=== PATIENT | female | born 1985 ===

== ENCOUNTER → 2020-08-18 | Outpatient (CLI) | payer SELFPAY ==
[~2020-08-18] MED LIST: COVID-19 VACCINE (PFIZER)/PF 30 MCG/0.3 ML VIAL IM ONE; EPINEPHRINE INJ/PF 1 MG/1 ML AMPULE IM PRN
== END ==
LOC: EMPHEALTH 08:20
PROVIDERS: ATTEND Internal Medicine
DX: Z23 Encounter for immunization (principal)
CPT/HCPCS: 91300

== ENCOUNTER → 2020-09-08 | Outpatient (CLI) | payer SELFPAY ==
--- OUTSIDE RECORDS SUMMARY | 2020-09-08 14:30 | XMS REPORT ---
:1985 Author Organization [facility] Address [facility] [address] [place] [address] Care Team Providers Name Role Phone PCP, NONE PER PATIENT Primary Care Physician Unavailable Allergies, Adverse Reactions, Alerts This patient has no known allergies or adverse reactions. Medications This patient has no known medications. Problems Condition Condition Condition Status Onset Resolution Last Treatin g Comments Name Details Category Date Date Treatment Clinician Date Not on file Not on file [id number] Procedures This patient has no known procedures. Results This patient has no known results. Assessments Condition Name Status Diagnosis Date Treating Clinici an Diagnosis unknown Active Encounters Start End Encounter Admission Attending Care Care Encounter ID Date/Time Date/Time Type Type Clinicians Facility Department 2019-02-18 2019-02-18 Outpatient [facility] [id number] 12:25:49 23:59:00 [id number] 2019-02-18 2019-02-18 [facility] [id number] 12:25:49 12:40:49 2019-02-18 2019-02-18 Outpatient [facility] [id number] 00:00:00 00:00:00 [id number] Payers Payer Name Policy Type Policy Number Effective Date Expiration D ate [facility]) [id number] 2018 00:00:00 Plan of Treatment Planned Activity Planned Date Details Comments Future Scheduled Test [code = ] Future Scheduled Test [code = ] Future Scheduled Test [code = ] Future Scheduled Test [code = ] Future Scheduled Test [code = ] Future Scheduled Test [code = ] Future Scheduled Test [code = ] Social History This patient has no known social history. Vital Signs This patient has no known vital signs.
== END ==
LOC: EMPHEALTH 09:17
PROVIDERS: ATTEND Internal Medicine
DX: Z23 Encounter for immunization (principal)
CPT/HCPCS: 91300